=== PATIENT | female | born 1950 | race Caucasian/White ===

== ENCOUNTER 2017-07-27 18:43 | Emergency (ER) | payer OTHER, MEDICARE ==
[~2017-07-27] VITALS: Ht 160 cm; Wt 75.0 kg
[2017-07-27 19:00] VITALS: BP 192/88; PULSE 87; RESP 20; TEMP 98.1; O2SAT 95
[2017-07-27] MEDS ORDERED: LEXA10TA PO (19:04)
[2017-07-27] MEDS ORDERED: MOBI7.5T PO (19:04)
[2017-07-27] MEDS ORDERED: TRAM50TA PO (19:04)
[2017-07-27] MEDS ORDERED: OMEP40CA2 (19:05)
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
[2017-07-27 19:39] VITALS: BP 116/75; PULSE 68; RESP 18; O2SAT 99
[2017-07-27 19:44] LABS: AUTOMATED NEUTROPHIL # 5.7 TH/MM3 (1.8-7.7); BASOPHIL # 0.1 TH/MM3 (0-0.2); BASOPHIL % 0.6 % (0.0-2.0); EOSINOPHIL # 0.1 TH/MM3 (0-0.4); EOSINOPHIL % 0.8 % (0.0-4.0); HEMATOCRIT 45.5 % (35.0-46.0); HEMOGLOBIN 15.3 GM/DL (11.6-15.3); LYMPHOCYTE # 3.2 TH/MM3 (1.0-4.8); MEAN CELL VOLUME 93.1 FL (80.0-100.0); MEAN CORPUSCULAR HEMOGLOBIN 31.2 PG (27.0-34.0); MEAN CORPUSCULAR HGB CONC 33.6 % (32.0-36.0); MEAN PLATELET VOLUME 7.6 FL (7.0-11.0); MONO % 6.2 % (0.0-8.0); MONOCYTE # 0.6 TH/MM3 (0-0.9); NEUT % 59.4 % (16.0-70.0); PLATELET COUNT 270 TH/MM3 (150-450); RED BLOOD COUNT 4.89 MIL/MM3 (4.00-5.30); RED CELL DISTRIBUTION WIDTH 13.6 % (11.6-17.2); WHITE BLOOD COUNT 9.6 TH/MM3 (4.0-11.0)
[2017-07-27] MEDS ORDERED: IOHEXOL 350 MG/ML 10 ML VIAL (for RAD DIAG) IVCONTRAST ONE (19:52)
[2017-07-27 19:59] LABS: ALT (GPT) 27 U/L (10-53)
[2017-07-27 20:00] LABS: ALBUMIN 3.7 GM/DL (3.4-5.0); AST (GOT) 21 U/L (15-37); BICARBONATE 28.2 MEQ/L (21.0-32.0); BLOOD UREA NITROGEN 10 MG/DL (7-18); CALCIUM 9.1 MG/DL (8.5-10.1); GLOMERULAR FILTRATION RATE 84 ML/MIN (>89); GLUCOSE,RANDOM 83 MG/DL (74-106); PROTHROMBIN TIME - PATIENT 9.9 SEC (9.8-11.6)
[2017-07-27 20:01] LABS: ALKALINE PHOSPHATASE 103 U/L (45-117); TOTAL BILIRUBIN ADULT 0.2 MG/DL (0.2-1.0); TOTAL PROTEIN 7.6 GM/DL (6.4-8.2)
[2017-07-27 20:07] LABS: CHLORIDE 106 MEQ/L (98-107); SODIUM (NA) 142 MEQ/L (136-145)
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
[2017-07-27] MEDS ORDERED: DICL75TA PO (20:53)
[2017-07-27] MEDS ORDERED: HYDR-3516 PO (20:53)
[2017-07-27] MEDS ORDERED: ACETAMINOPHEN/HYDROcodone 325 MG/5 MG TAB PO ONE (21:00)
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
--- NOTE | 2017-07-27 21:25 | EKG ---
Date Performed: 07/27/2017 Time Performed: 19:18:46 PTAGE: 67 years EKG: Sinus rhythm NORMAL ECG NO PREVIOUS TRACING DOCTOR: Junior Butcher Interpretating Date/Time 07/27/2017 21:23:37
== END 2017-07-27 21:08 | disposition home or self-care (01) ==
LOC: NEPC 18:43
DX: S20.212A Contusion of left front wall of thorax, initial encounter (principal); S09.90XA Unspecified injury of head, initial encounter; F17.200 Nicotine dependence, unspecified, uncomplicated; F32.9 Major depressive disorder, single episode, unspecified; V47.6XXA Car passenger injured in collision with fixed or stationary object in traffic accident, initial encounter
CPT/HCPCS: 70450; 71045; 71260; 72125; 74177; 80053; 85025; 85610; 85730; 93005; 99285; Q9967